=== PATIENT | female | born 1960 | race Caucasian/White ===

== ENCOUNTER → 2017-01-27 | Outpatient (CLI) | payer BC | LOC: SBRMNEURO 21:00 | PROVIDERS: ATTEND Internal Medicine Sleep Medicine | DX: G47.33 Obstructive sleep apnea (adult) (pediatric) (principal) ==

== ENCOUNTER 2018-02-22 10:15 | Inpatient (IN) | payer BC, OTHER ==
[2018-02-22] MEDS ORDERED: LR 1,000 ML IV ONE (10:58)
[2018-02-22] MEDS ORDERED: GADOBUTROL 10 ML VIAL IVP ONE (11:39)
[2018-02-22 11:45] LABS: PLATELET COUNT 266 10^3/uL (150-400)
[2018-02-22] MEDS ORDERED: BUPIVACAINE/EPI 0.25% 30 ML SDV ONE (12:09)
[2018-02-22] MEDS ORDERED: CHLORHEXIDINE GLUC HIBICLENS 118 ML BTL TP ONE (12:09)
[2018-02-22] MEDS ORDERED: POVIDONE-IODINE 30 GM OINTTUBE TP ONE (12:09)
[2018-02-22] MEDS ORDERED: SURGIFLO MATRIX KIT WITH THROMBIN 8 ML TP ONE (12:10)
[2018-02-22] MEDS ORDERED: BACITRACIN ZINC 0.5 OZ OINTTUBE TP ONE (12:10)
[2018-02-22] MEDS ORDERED: MANNITOL 20% 100 GM/500 ML BAG IV ONE (12:11)
[2018-02-22] MEDS ORDERED: GENTAMICIN SULFATE 80 MG/2 ML VIAL ONE (12:11)
[2018-02-22] MEDS ORDERED: THROMBIN (BOVINE) 5,000 UNIT VIAL TP ONE (12:11)
[2018-02-22] MEDS ORDERED: HYDROGEN PEROXIDE 236 ML BOTTLE TP ONE (12:11)
[2018-02-22] MEDS ORDERED: AVITENE POWDER 1 GM JAR TP ONE (12:11)
--- NOTE | 2018-02-22 13:34 | PDANEPAE ---
ANE History of Present Illness left frontal soft tissue mass here for craniotomy ANE Past Medical History - Cardiovascular History Hx Hypertension: No Hx Arrhythmias: No Hx Chest Pain: No Hx Coronary Artery / Peripheral Vascular Disease: No Hx CHF / Valvular Disease: No Hx Palpitations: No - Pulmonary History Hx COPD: No Hx Asthma/Reactive Airway Disease: No Hx Recent Upper Respiratory Infection: No Hx Oxygen in Use at Home: No Hx Sleep Apnea: Yes Sleep Apnea Screening Result - Last Documented: Negative - Neurologic History Hx Cerebrovascular Accident: No Hx Seizures: No Hx Dementia: No Neurologic History Comment: headaches/ migraines x 3 months. hx of vertigo. hx of right eye pain. hx of facial numbness - Endocrine History Hx Diabetes: No Endocrine History Comment: thyroid nodules - Renal History Hx Renal Disorders: Yes Renal History Comment: hx of kidney stone with lithotripsy - Liver History Hx Hepatic Disorders: No - Neurological & Psychiatric Hx Hx Neurological and Psychiatric Disorders: Yes Neurological / Psychiatric History Comment: anxiety. depression - Cancer History Hx Cancer: Yes Cancer History Comment: basal cell - Congenital Disorder History Hx Congenital Disorders: No - GI History Hx Gastrointestinal Disorders: No - Other Health History Other Health History: wears glasses - Chronic Pain History Chronic Pain: No - Surgical History Prior Surgeries: cervical fusion x2. breast reduction. hysterectomy. c- section x2. appy. left knee acl repair x2. lithotripsy ANE Review of Systems Review of Systems: - Exercise capacity METS (RN): 4 METS ANE Patient History - Allergies Allergies/Adverse Reactions: No Known Allergies Allergy (Verified 02/19/18 12:40) - Home Medications Home Medications: DULoxetine [Cymbalta 60 MG (*)] 60 mg PO DAILY 02/19/18 [Last Taken 02/21/18] Gabapentin [Neurontin 400 MG (*)] 400 mg PO HS 02/19/18 [Last Taken 02/21/18] - NPO status NPO Status: no food or drink >8 hours NPO Since - Liquids (Date): 02/21/18 NPO Since - Liquids (Time): 22:00 NPO Since - Solids (Date): 02/21/18 NPO Since - Solids (Time): 19:00 - Anes Hx Anes Hx: post operative nausea and vomiting - Smoking Hx Smoking Status: Never smoked - Alcohol Use Alcohol Use: Occasionally - Family Anes Hx Family Anes Hx: none Family Hx Anesthesia Complications: none ANE Labs/Vital Signs - Labs Result Diagrams: 02/22/18 11:33 - Vital Signs Vital Signs: reviewed preoperatively; see RN documention for details Blood Pressure: 129/95 Heart Rate: 71 Respiratory Rate: 18 O2 Sat (%): 98 Height: 154.94 cm Weight: 58.06 kg ANE Physical Exam - Airway Neck exam: FROM Mallampati Score: Class 2 Mouth exam: normal dental/mouth exam - Pulmonary Pulmonary: no respiratory distress, clear to auscultation - Cardiovascular Cardiovascular: regular rate and rhythym, no murmur, rub, or gallop - ASA Status ASA Status: II ANE Anesthesia Plan Anesthesia Plan: general endotracheal anesthesia Lines/Monitors: arterial line
[2018-02-22] MEDS ORDERED: MIDAZOLAM 2 MG/2 ML VIAL IVP ONE (13:35)
[2018-02-22] MEDS ORDERED: fentaNYL 100 MCG/2 ML INJ ONE ×3 (13:40→17:04)
[2018-02-22] MEDS ORDERED: PROPOFOL 200 MG/20 ML VIAL ONE ×2 (13:41→14:28)
[2018-02-22] MEDS ORDERED: PROPOFOL/EMULSION 500 MG/50 ML BOTTLE IV ONE (13:41)
[2018-02-22] MEDS ORDERED: REMIFENTANIL HCL 1 MG VIAL ONE (13:41)
[2018-02-22] MEDS ORDERED: LIDOCAINE 2% 100 MG/5 ML SYR ONE (13:45)
[2018-02-22] MEDS ORDERED: SCOPOLAMINE HYDROBROMIDE 1 MG/3 DAYS PATCH TD SCH (13:45)
[2018-02-22] MEDS ORDERED: ceFAZolin 2 GM/DEXTROSE 100 ML IV ONE (14:17)
[2018-02-22] MEDS ORDERED: CEFAZOLIN 2 GM/DEXTROSE/100 ML BAG IV ONE (14:19)
--- NOTE | 2018-02-22 14:20 | PDHPUP ---
History & Physical Update H&P update statement: This history and physical update is based on an assessment of the patient which was completed after admission or registration (within 24 hours), but prior to the surgery/procedure. H&P update: H&P reviewed & patient examined, no change in patient's condition since H&P completed
[2018-02-22] MEDS ORDERED: LACTULOSE 20 GM/30 ML UDCUP PO PRN (14:40)
[2018-02-22] MEDS ORDERED: MAGNESIUM HYDROXIDE 30 ML UDCUP PO PRN (14:40)
[2018-02-22] MEDS ORDERED: BISACODYL 10 MG SUPP PR PRN (14:40)
[2018-02-22] MEDS ORDERED: POLYETHYLENE GLYCOL 3350 17 GM PKT PO PRN (14:40)
[2018-02-22] MEDS ORDERED: NS W/ 20 KCl/L 1,000 ML IV SCH (14:45)
[2018-02-22] MEDS ORDERED: PHENYLEPHRINE HCL 100 MCG/ML SYR ONE (14:50)
[2018-02-22] MEDS ORDERED: niCARdipine/NACL 200 ML IV PRN (14:52)
[2018-02-22] MEDS ORDERED: hydrALAZINE 20 MG/ML VIAL IVP PRN (14:52)
[2018-02-22] MEDS ORDERED: ONDANSETRON 4 MG/2 ML VIAL IVP PRN ×2 (14:52→16:16)
[2018-02-22] MEDS ORDERED: ACETAMINOPHEN 325 MG TAB PO PRN (14:52)
[2018-02-22] MEDS ORDERED: PROMETHAZINE HCL 25 MG/ML INJ IVP PRN ×2 (14:52→16:16)
[2018-02-22] MEDS ORDERED: diphenhydrAMINE 25 MG CAP PO PRN (14:52)
[2018-02-22] MEDS ORDERED: ONDANSETRON DISINTEGRATING 4 MG TAB PO PRN (14:52)
[2018-02-22] MEDS ORDERED: *MD ORDERING ONLY-DEXAMETHASONE TAPER PO SCH (15:00)
[2018-02-22] MEDS ORDERED: HYDROCODONE/APAP 5/325 TAB PO PRN (16:16)
[2018-02-22] MEDS ORDERED: ACETAMINOPHEN 500 MG TAB PO PRN (16:16)
[2018-02-22] MEDS ORDERED: oxyCODONE IR 5 MG TAB PO PRN (16:16)
[2018-02-22] MEDS ORDERED: fentaNYL 100 MCG/2 ML INJ IVP PRN (16:16)
[2018-02-22] MEDS ORDERED: DIAZEPAM 5 MG/ML 1 ML SYR IVP PRN (16:16)
[2018-02-22] MEDS ORDERED: HYDROmorphONE/DILAUDID 2 MG/ML INJ IVP PRN (16:16)
[2018-02-22] MEDS ORDERED: NALOXONE HCL 0.4 MG/ML INJ IVP PRN (16:16)
--- NOTE | 2018-02-22 16:22 | PDMN ---
Medical Necessity Medical necessity: MCG; S 410 craniotomy, supratentorial - [facility]PT only 3 days: OP: frontal craniotomy w/ russ-Aliyah ---APPROVED 2 days, CUSTOMER ACCOUNT REPRESENTATIVE due 02/24 to Nika #[id number] AUTH [id number] APPROVED [id number] [id number] [id number] [place]
[2018-02-22] MEDS ORDERED: SUGAMMADEX SODIUM 200 MG/2 ML VIAL IVP ONE (16:30)
--- NOTE | 2018-02-22 17:03 | POSTANESTH ---
Post Anesthetic Evaluation Cardiovascular Status: Normal, Stable, Similar to Pre-Op Cond Respiratory Status: Normal, Stable, Similar to Pre-op Cond. Level of Consciousness/Mental Status: Can Participate in Eval, Alert and Oriented Pain Control: Adequate, Prn Tx Ordered Nausea/Vomiting Control: Adequate, Prn Tx Ordered Complications Possibly Related to Anesthesia: None Noted
--- NOTE | 2018-02-22 17:14 | GOP ---
DATE OF OPERATION: 02/22/2018 SURGEON: Errol Lema MD NEUROSURGEON: Errol Lema MD BUSINESS APPLICATIONS MANAGER: Celeste Ennis PA-C. ANESTHESIA: General endotracheal. PREOPERATIVE DIAGNOSIS: Left parafalcine meningioma. POSTOPERATIVE DIAGNOSIS: Left parafalcine meningioma. PROCEDURE PERFORMED: 1. Left parasagittal craniotomy. 2. Microsurgical gross total resection of left parafalcine meningioma. 3. Use of the operative microscope. 4. Stealth stereotactic neuronavigation for volumetric gross total resection of meningioma. FINDINGS: A successful resection of meningioma. SPECIMENS: Left frontal parafalcine meningioma. ESTIMATED BLOOD LOSS: 20 cc. INDICATIONS: This is a 57-year-old woman who presented with some headaches. Incidentally, she was found to have a roughly 2.5 cm left parafalcine meningioma with what looked like some attachment to the sagittal sinus. We discussed the options of radiation therapy, watchful waiting versus surgical resection and ultimately she decided to proceed with surgical resection. She presented electively today. DESCRIPTION OF PROCEDURE: After informed consent was obtained from the patient , the patient was brought to the operating room and was placed in the supine position on the operating table. A formal time-out was performed, identifying the patient by name, medical record number and date of . Preoperative antibiotics were given. The endotracheal tube was placed and general endotracheal anesthesia was smoothly induced. The patient's head was placed in the Perez pins and was turned toward the left side with the sagittal sinus nearly parallel to the floor. This allowed gravity retraction to assist with the relaxation of the frontal lobe. The Stealth was then registered to the scalp and checked for accuracy using known surface landmarks. This was used to plan a parasagittal incision over the area of the meningioma, which was about 4 cm long. 10 cc of 0.25% Marcaine with epinephrine was infiltrated in the skin for hemostasis. The head was prepped and draped in the normal sterile fashion. A skin incision was made using a 10 blade and Kath clips were placed for hemostasis. A self-retaining retractor was placed. The periosteum was elevated and the sagittal and coronal sutures were identified. The position was checked with the navigation and 2 bur holes were placed on the sagittal sinus. One anterior to the tumor and 1 posterior. The dura was stripped from beneath and the craniotome was used to turn a roughly 2.5 cm2 craniotomy flap with its base at the sagittal sinus. All bleeding was controlled with bipolar electrocautery and some Gelfoam. At this point, again, we checked with the navigation to be sure that we covered the area of the tumor and the dura was opened sharply and reflected toward the sagittal sinus. The gravity retraction of the frontal lobe was excellent. We could visualize the tumor. The operative microscope was then brought on the field and remainder of the procedure was performed under high-power magnification. First, the tumor was visualized and a careful arachnoid dissection was used to separate the left frontal lobe from the tumor. The tumor was entered and bipolar electrocautery and suction was used to course down the falx and the lateral portion of the tumor was removed. This resulted in more space for visualization. We then started posterior to the tumor and the falx was cut sharply using an 11 blade. The edges of the falx were then coagulated and the contralateral frontal lobe was visualized. Sharp scissors were used to cut the falx inferiorly to the inferior portion of the tumor. We went around the attachment of the tumor, then circumferentially cutting the falx out completely and the tumor was seen extending through to the contralateral side. The falx was removed en bloc and no further tumor was visualized at any portion. The sagittal sinus was inspected and there was a small attachment area there, which was coagulated using bipolar electrocautery. The cavity was inspected and no further areas of tumor were seen. A piece of Surgicel was placed over the frontal lobe and there was no bleeding. The wound was copiously irrigated using gentamicin irrigation. The dura was then tacked closed using interrupted 4-0 Nurolon sutures. The dural opening was covered with Gelfoam and the bone flap was plated back in place using Synthes titanium plates and screws. The wound was again copiously irrigated using bacitracin irrigation. The galea was closed using interrupted 2-0 Vicryl. The skin was closed using a running 4-0 Monocryl. Sterile dressings were placed. The patient was awakened in the operating room where she was extubated and transferred to the PACU in stable condition. There were no operative complications. I was scrubbed and present for the entire procedure. All sponge and needle counts were correct at the end of the case. FLUIDS AND URINE OUTPUT: Per the anesthesia record. DRAINS: There were no drains. /[id number]/MODL MTDD
--- NOTE | 2018-02-22 17:24 | POSTOPPROG ---
Post Op Note Date of Operation: 02/22/18 Surgeon: Errol Lema Scaleman: Celeste Winters PA-C Anesthesia: GET(General Endotracheal) Pre-op Diagnosis: Left parasiggital brain mass Post-op Diagnosis: same Procedure: left frontal craniotomy for resection of brain mass Inf/Abcess present in the surg proc area at time of surgery?: No Depth: Organ Space EBL: 20mL Complications: None observed SOAP Progress Note Assessment/Plan: Assessment: Plan: 02/22/18 17:22 S:Patient in PACU. Stable with a mild headache as expected O: NAD, VSS PERRL, EOMI CN II-XII grossly intact no droop no drift Following commands, speech fluent GASPAR X4 Incision c/d/i- dressed A: 57 yo female sp left frontal craniotomy for resection of suspected meningioma P: Admit to ICU -Q2 hour neuro check -MRI in am -SBP 90-140 -No decadron or keppra - DVT: TEDs, SCDs, Lovenox on POD#3 if still in house -PT.OT.[employer] MANAGER -Dispo- Possibly tomorrow 02/23 vs 02/24 if doing well -Dr. Lema saw in PACU as well Objective: Vital Signs Temp Pulse Resp BP Pulse Ox 37.0 C 71 18 129/95 H 98 02/22/18 11:02 02/22/18 13:34 02/22/18 13:34 02/22/18 13:34 02/22/18 13:34 Laboratory Results 02/22/18 11:33
[2018-02-22] MEDS: POLYETHYLENE GLYCOL 3350 17 GM PKT PO SCH ×2 (18:34→20:17)
[2018-02-22] MEDS: SENNOSIDES/DOCUSATE SODIUM TAB PO SCH (20:16)
[2018-02-22] MEDS: HYDROCODONE/APAP 10/325 TAB PO PRN ×2 (20:16→21:33)
[2018-02-22] MEDS: GABAPENTIN 400 MG CAP PO SCH (20:16)
[2018-02-23] MEDS: HYDROCODONE/APAP 10/325 TAB PO PRN ×4 (03:41→16:18)
--- NOTE | 2018-02-23 06:04 | PDCONSULT ---
Microbiology Supervisor Note: NEUROSURGERY no new events, doing well, mild headache AAOx3, CNII-XII grossly normal full strength, sensation, no drift wound c/d/i POD#1 s/p resection of left parafalcine meningioma - doing well - MRI today - no need for decadron/keppra - ambulate - can remove dressing and shower today, wash hair - anticipate d/c tomorrow [facility]
[2018-02-23] MEDS: SENNOSIDES/DOCUSATE SODIUM TAB PO SCH ×2 (09:23→21:15)
[2018-02-23] MEDS: DULoxetine 60 MG CAP PO SCH (09:24)
[2018-02-23] MEDS: POLYETHYLENE GLYCOL 3350 17 GM PKT PO SCH ×3 (09:25→21:15)
--- NOTE | 2018-02-23 09:44 | ASMTCASEMG ---
Living Arrangements What is your living Answers: Alone arrangement? Who do you live with? Type Of Residence What kind of residence do Answers: House you live in? Discharge Plan Comments Coordination Status Comments Notes: Patient is a 57yo female who was found to have a 2.5 cm left parafalcine meningioma. The patient has electively decided to proceed with surgical resection. Patient lives in [place] and has a daughter, Mitzi Su. BICYCLE I ASSEMBLER/OT have been ordered for the patient. D/C plan TBD. CM will follow. Date Signed: 02/23/2018 09:44 AM Electronically Signed By:Marilyn Keita LCSW
[2018-02-23] MEDS ORDERED: GADOBUTROL 10 ML VIAL IVP ONE (11:01)
[2018-02-23] MEDS: KETOROLAC 30 MG/1 ML SDV IVP PRN (18:40)
[2018-02-23] MEDS: GABAPENTIN 400 MG CAP PO SCH (21:15)
[2018-02-24] MEDS: HYDROCODONE/APAP 10/325 TAB PO PRN (00:25)
--- NOTE | 2018-02-24 07:13 | NEUSURGPN ---
Date of Surgery: 02/22/18 Post Op Day: 2 Assessment/Plan: 57 yo female s/p left frontal craniotomy for resection of parasagittal meningioma - neuro stable - pain controlled - MRI brain completed- no evidence of residual mass - tolerating diet - discharge to home today Discussed with Dr. Lema. Subjective: Doing well this morning. No nausea/vomiting. Mild headache. Objective: Awake. Alert. PERRL. EOMI Facial expression symmetrical Muscle strength full at 5/5 Incision c/d/i - Physician Discussed Patient with : [facility] Physical Exam - Vitals, I&O, Labs I and O 02/23/18 02/24/18 02/25/18 05:59 05:59 05:59 Intake Total 3280 1400 Output Total 1170 1600 Balance 2110 -200 Weight 58.06 kg Intake: Oral (ml) 1250 1400 IV Intake (ml) 1400 IV Infused (ml) 630 NS W/ 20 KCl/L 1,000 ml @ 630 100 mls/hr IV CONT ANGE Rx#:[id number] Output: Urine (ml) 1150 1600 Toilet 1150 1600 Estimated Blood Loss (ml) 20 Other: Number of Voids Toilet 1 1 Vital Signs Temp Pulse Resp BP Pulse Ox 36.5 C 80 16 128/78 H 93 02/24/18 02:18 02/24/18 02:18 02/24/18 02:18 02/24/18 02:18 02/24/18 02:18 Laboratory Results 02/22/18 11:33 ICD10 Worksheet Patient Problems: Problems Problem Status Onset Meningioma Acute - ICD10 Problem Qualifiers (1) Meningioma
[2018-02-24] MEDS: KETOROLAC 30 MG/1 ML SDV IVP PRN ×2 (08:15→17:09)
[2018-02-24] MEDS: POLYETHYLENE GLYCOL 3350 17 GM PKT PO SCH ×2 (08:17→17:07)
[2018-02-24] MEDS: SENNOSIDES/DOCUSATE SODIUM TAB PO SCH (08:17)
[2018-02-24] MEDS: DULoxetine 60 MG CAP PO SCH (08:18)
[2018-02-24 15:39] VITALS: BP 102/77
--- NOTE | 2018-02-24 15:47 | ASMTLACE ---
LEVYE Length of stay for Answers: 3 days current admission Acuity / Level of Answers: Yes Care: Did the patient have an inpatient admission? # of Emergency department Answers: 0 visits in the last 6 months Social determinants Answers: Mental health diagnosis (anxiety, depression, pers onality disorders, etc.) Score: 9 Date Signed: 02/24/2018 03:47 PM Electronically Signed By:STEPHY Wolf
--- NOTE | 2018-02-24 16:58 | PDHOSCONS ---
History and Physical - Chief Complaint Hypoxia - History of Present Illness Margarita Bravo is a 57 yo F who is admitted to [facility] s/p L frontal craniotomy and resection of meningioma who had low 02 sat this morning for which hospitalist service was consulted. Patient reports no subjective shortness of breath, cough , wheezing, hemoptysis, BEDOLLA. She denies any hx of cardiac or lung issues in the past. History Information - Allergies/Home Medication List Allergies/Adverse Reactions: No Known Allergies Allergy (Verified 02/19/18 12:40) Home Medications: DULoxetine [Cymbalta 60 MG (*)] 60 mg PO DAILY 02/19/18 [Last Taken 02/21/18] Gabapentin [Neurontin 400 MG (*)] 400 mg PO HS 02/19/18 [Last Taken 02/21/18] I have personally reviewed and updated: family history, medical history, social history, surgical history - Past Medical History Additional medical history: Meningioma - Surgical History Additional surgical history: S.p craniotomy, meningioma resection - Family History Positive for: non-pertinent - Social History Smoking Status: Never smoked Alcohol Use: Occasionally Review of Systems Review of Systems: ROS: 10pt was reviewed & negative except for what was stated in HPI & below Physical Exam Physical Exam: Temp Pulse Resp BP Pulse Ox 36.9 C 85 18 102/77 92 02/24/18 15:36 02/24/18 15:36 02/24/18 15:36 02/24/18 15:36 02/24/18 15:36 O2 (L/minute) 2 FIO2 (%) 2 Constitutional: no apparent distress Eyes: PERRL Ears, Nose, Mouth, Throat: moist mucous membranes Cardiovascular: regular rate and rhythym Respiratory: no respiratory distress Gastrointestinal: No distension Skin: normal color Neurologic: AAOx3 Psychiatric: interacting appropriately Lab Data & Imaging Review 02/22/18 11:33 WBC 5.38 10^3/uL (3.80-9.50) 02/22/18 11:33 RBC 4.91 10^6/uL (4.18-5.33) 02/22/18 11:33 Hgb 14.9 g/dL (12.6-16.3) 02/22/18 11:33 Hct 44.0 % (38.0-47.0) 02/22/18 11:33 MCV 89.6 fL (81.5-99.8) 02/22/18 11:33 MCH 30.3 pg (27.9-34.1) 02/22/18 11:33 MCHC 33.9 g/dL (32.4-36.7) 02/22/18 11:33 RDW 12.8 % (11.5-15.2) 02/22/18 11:33 Plt Count 266 10^3/uL (150-400) 02/22/18 11:33 MPV 9.6 fL (8.7-11.7) 02/22/18 11:33 Neut % (Auto) 54.8 % (39.3-74.2) 02/22/18 11:33 Lymph % (Auto) 33.5 % (15.0-45.0) 02/22/18 11:33 Caldwell % (Auto) 7.2 % (4.5-13.0) 02/22/18 11:33 Eos % (Auto) 3.7 % (0.6-7.6) 02/22/18 11:33 Baso % (Auto) 0.6 % (0.3-1.7) 02/22/18 11:33 Nucleat RBC Rel Count 0.0 % (0.0-0.2) 02/22/18 11:33 Absolute Neuts (auto) 2.95 10^3/uL (1.70-6.50) 02/22/18 11:33 Absolute Lymphs (auto) 1.80 10^3/uL (1.00-3.00) 02/22/18 11:33 Absolute Monos (auto) 0.39 10^3/uL (0.30-0.80) 02/22/18 11:33 Absolute Eos (auto) 0.20 10^3/uL (0.03-0.40) 02/22/18 11:33 Absolute Basos (auto) 0.03 10^3/uL (0.02-0.10) 02/22/18 11:33 Absolute Nucleated RBC 0.00 10^3/uL (0-0.01) 02/22/18 11:33 Immature Gran % 0.2 % (0.0-1.1) 02/22/18 11:33 Immature Gran # 0.01 10^3/uL (0.00-0.10) 02/22/18 11:33 Assessment & Plan Assessment: Hypoxia - 79% on RA this morning, no subjective respiratory complaints by patient, no hx of pulmonary/cardiac disease - Lung exam with no acute findings, CTA B/L - CXR performed which shows peribronchial thickening and mild hypoventilatory features which are most likely cause of hypoxia despite no symptoms of URI - CXR also showing questionable nodular opacity in R midlung, Chest CT imaging could be considered for further assessment if this represents a pleural or parenchymal lesion per radiology, this may be done as outpatient to further evaluate if primary service is to discharge patient this evening - 02 saturation in 90's with no supplemental 02 on exam today - Recommend continuing incentive spirometer Thank you for the consult. Please contact the hospitalist team for questions or concerns.
[2018-02-24] MEDS ORDERED: traZODone 100 MG TAB PO SCH (21:00)
--- NOTE | 2018-02-25 09:58 | ASMTCMCOM ---
CM Note CM Note Notes: Pt dc yesterday. 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 Pt will have sister and dghtr to stay with her for supervision. Pt has d/c order today but has home o2 need and possibly more medical workup with hospitalist consult ordered. CM will be available for any d/c needs but pt likely independent for d/c. Date Signed: 02/25/2018 09:57 AM Electronically Signed By:STEPHY Wolf
== END 2018-02-24 17:31 | disposition home or self-care (01) | DRG 27 ==
LOC: F3N 10:36 → F2N 17:19 → F3N 02-24 02:10
PROVIDERS: ADMIT Neurological Surgery; ATTEND Neurological Surgery
DX: D32.0 Benign neoplasm of cerebral meninges (principal); F41.9 Anxiety disorder, unspecified; F32.9 Major depressive disorder, single episode, unspecified; Z98.1 Arthrodesis status
CPT/HCPCS: 92507-GN; 92523-GN; 97161-GP; 97165-GO; A9585; C1713; J0690; J1580; J1885; J2001; J2250; J2270; J2370; J2405; J2704; J3010